=== PATIENT | male | born 1995 | race Caucasian/White ===

== ENCOUNTER 2023-05-16 18:17 | Emergency (ER) | payer OTHER ==
[~2023-05-16] VITALS: Ht 182.9 cm; Wt 164.7 kg
[2023-05-16] MEDS ORDERED: diphenhydrAMINE HCL ELIX 25 MG/10 ML UDC ONE ×2 (20:31→20:32)
[2023-05-16] MEDS ORDERED: ONDANSETRON HCL/PF 4 MG/2 ML VIAL ONE (20:31)
[2023-05-16] MEDS ORDERED: KETOROLAC TROMETHAMINE 15 MG/ML VIAL ONE (20:31)
[2023-05-16 20:33] LABS: BASOPHILS % (AUTO) 0.2 % (0.0-2.0); EOSINOPHILS % (AUTO) 0.2 % (0.0-6.0); HEMATOCRIT 42 % (39-51); HEMOGLOBIN 13.6 g/dL (13.5-17.5); LYMPHOCYTES # (AUTO) 2.2 K/uL (0.8-4.8); LYMPHOCYTES % (AUTO) 10.8 % (20.0-44.0); MEAN CORPUSCULAR HEMOGLOBIN 26 PG (26.0-33.0); MEAN CORPUSCULAR HGB CONC 33 g/dl (31.0-36.0); MEAN CORPUSCULAR VOLUME 80 fL (80-96); MONOCYTES # (AUTO) 0.7 K/uL (0.1-1.30); MONOCYTES % (AUTO) 3.4 % (2.0-12.0); NEUTROPHILS % (AUTO) 85.4 % (43.0-81.0); PLATELET COUNT (AUTO) 333 K/uL (150-450); RED CELL DISTRIBUTION WIDTH 14.4 % (11.5-15.0); WHITE BLOOD COUNT (AUTO) 19.9 K/uL (4.3-11.0)
[2023-05-16] MEDS ORDERED: diphenhydrAMINE HCL 50 MG/ML VIAL ONE (20:33)
[2023-05-16 20:48] LABS: CALCIUM, SERUM 8.9 mg/dL (8.5-10.1); CARBON DIOXIDE 24 mmol/L (21-32); CHLORIDE 102 mmol/L (98-107); CREATININE 0.7 mg/dL (0.6-1.3); GLUCOSE 198 mg/dL (74-106); POTASSIUM 3.6 mmol/L (3.5-5.1); SODIUM SERUM 137 mmol/L (136-145); UREA NITROGEN, BLOOD 11 mg/dL (7-18)
[2023-05-16] MEDS: KETOROLAC TROMETHAMINE 15 MG/ML VIAL IV ONE (20:48)
[2023-05-16] MEDS: IV NS 0.9% 1,000 ML BAG IV ONE (20:48)
[2023-05-16] MEDS: ONDANSETRON HCL/PF 4 MG/2 ML VIAL IVP ONE (20:48)
[2023-05-16] MEDS: diphenhydrAMINE HCL 50 MG/ML VIAL IV ONE (20:48)
[2023-05-16] MEDS ORDERED: ACET325C7 PO (23:33)
[2023-05-16] MEDS ORDERED: ONDA4TAB5 PO (23:33)
[2023-05-16] MEDS ORDERED: IBUP-1955 PO (23:33)
[2023-05-17 00:09] VITALS: BP 158/90; TEMP 98; O2SAT 98
== END 2023-05-17 00:10 | disposition home or self-care (01) ==
LOC: ER 18:22
DX: R51.9 Headache, unspecified (principal); R11.2 Nausea with vomiting, unspecified; I10 Essential (primary) hypertension; E11.9 Type 2 diabetes mellitus without complications; F41.9 Anxiety disorder, unspecified; F32.A Depression, unspecified; Z79.899 Other long term (current) drug therapy
CPT/HCPCS: 99285; 96374; 70450; 71045; 96375; 96361; 93005; 85025; 80048; 36415; 84484; Q0163 ×2; J1200; J2405; J7030; J1885